=== PATIENT | female | born 1935 | race Caucasian/White ===

== ENCOUNTER 2017-08-10 23:55 | Observation (INO) ==
--- NOTE | 2017-08-11 00:05 | Emergency Department Note ---
Disposition Clinical Impression: Transient cerebral ischemia Qualifiers: Transient cerebral ischemia type: unspecified Qualified Code(s): G45.9 - Transient cerebral ischemic attack, unspecified Disposition: Admitted As Inpatient Condition: Undetermined Time of Disposition: :25 Neuro HPI - General Chief Complaint: ED Neuro Symptoms/Deficit Stated Complaint: stroke symptoms Time Seen by Provider: 08/11/17 00:01 Source: patient, EMS Mode of arrival: EMS Limitations: no limitations Nursing Notes Reviewed: Yes Vital Signs Reviewed: Yes - History of Present Illness HPI Narrative: 82-year-old female arrives to [facility] emergency department complaining of left-sided weakness left upper and lower extremities as well as decreased sensation to the left upper and lower extremity. The patient also has mild left-sided facial droop. Patient denies any other complaints at this time. The patient states that her symptoms started right at 9 PM this evening. The patient states that she called her life alert at 1045 this evening as her symptoms did not improve. EMS arrived to her home and she was noted to have a blood pressure with a systolic over 200. Reevaluation noted the blood pressure in 180s. The patient was given one nitroglycerin which brought her blood pressure down to 120 systolic. The patient is resting comfortably in the room with obvious left-sided facial droop combined with the previous couple points as above noted. The patient does not have any decrease in the symptoms. Onset of Symptoms Date: 08/11/17 Onset of Symptoms Time: 21:00 Symptom Onset Unknown: No Location: left face, left arm, left leg History of same: No Symptoms Improving: No Improves with: none Worsens with: none On Anticoagulants: No Treatments Prior to Arrival: IV, other (Nitroglycerin) - Related Data Allergies/Adverse Reactions: Allergies Allergy/AdvReac Type Severity Reaction Status Date / Time No Known Allergies Allergy Verified 08/11/17 00:04 All systems ED: reviewed and negative except as stated. Constitutional: Denies: fever, chills, weakness, weight change Cardiovascular: Denies: chest pain, palpitations, dyspnea on exertion, edema, syncope Respiratory: Denies: cough, dyspnea, wheezes, hemoptysis, stridor Gastrointestinal: Denies: abdominal pain, nausea, vomiting, diarrhea, constipation, hematemesis, melena, hematochezia Genitourinary: Denies: dysuria, frequency, hematuria, discharge Musculoskeletal: Denies: back pain, neck pain, arthralgia, myalgia Integumentary: Denies: rash, abrasion, lesions Neurological: Reports: headache, weakness, numbness, paresthesias Past Medical History - Past Medical History Attestation: Yes The following information was validated with the patient. Source: patient Medical history: Reports: hypertension Physical Exam - General Limitations: no limitations General appearance: alert, in no apparent distress - Head Head exam: atraumatic, normocephalic, normal inspection - Neck Neck exam: Present: normal inspection, full ROM, trachea midline - Chest Chest inspection: Present: normal inspection, symmetric chest wall rise - Cardiovascular Cardiovascular exam: Present: regular rate, normal rhythm, normal heart sounds - Abdominal Exam Abdominal exam: Present: soft, Non-Tender. Absent: tenderness, distention, guarding, rebound, rigidity - Extremities Exam Extremities exam: Present: normal inspection. Absent: tenderness - Neurological Exam Neurological exam: Present: alert, oriented X3 - Expanded Neurological Exam Patient oriented to: Present: person, place, time Speech: Present: fluid speech Cranial nerves: facial sensation (V): Abnormal Left, facial palsy (VII): Abnormal Left Motor strength - LUE: 4/5 Motor strength - RUE: 4/5 Motor strength - LLE: 1/5 Motor strength - RLE: 4/5 Sensory exam upper extremity: light touch: Abnormal Left Sensory exam lower extremity: light touch: Abnormal Left Coma Scale Eye Opening: Spontaneous Coma Scale Motor Response: Obeys Commands Coma Scale Verbal Response: Oriented Coma Scale Total: 15 Course - Reevaluation(s) Reevaluation #1: Radiology noted that with there were no signs of intracranial hemorrhage or acute CVA on CT of the head. Time: 00:18 Reevaluation #2: After being called back to the room, the patient's symptoms are improving. The patient has almost baseline return of her left lower extremity weakness. The patient has normal sensation of left upper and lower extremities. The patient no longer has a facial droop on the left. Time: 00:43 - Consultations Consultation #1: We spoke with Dr. Day at [facility] neurology who did not recommend TPA given the fact that the patient's symptoms are resolving. We will admit the patient to [facility] area and we will speak to neurology and administer 325 mg aspirin. Time: 00:51 Consultation #2: Spoke to Dr. Oneal about consultation. No further recommendations at this time. Time: 01:05 Vital Signs Temperature 98.7 F 08/10/17 23:56 Pulse Rate 74 08/10/17 23:56 Respiratory Rate 20 08/10/17 23:56 Blood Pressure 204/104 08/10/17 23:56 O2 Sat by Pulse Oximetry 96 08/10/17 23:56 Temperature 98.7 F 08/10/17 23:56 Pulse Rate 68 08/11/17 00:35 Respiratory Rate 18 08/11/17 00:35 Blood Pressure 183/86 08/11/17 00:35 O2 Sat by Pulse Oximetry 96 08/10/17 23:56 Oxygen Delivery Oxygen Delivery Room Air Neuro Symptoms/Deficit - MDM Narrative Medical decision making narrative: Patient left-sided deficits noted on physical exam resolved prior to [facility] neurology was consulted. The patient appears to have experienced a TIA. The patient was administered 325 mg aspirin. After speaking with Dr. Day in neurology she did not recommend TPA. We spoke with Dr. Henley in neurology here in [facility] and they will agree to consult on the patient. We will admit the patient to the hospitalist service, accepted by Dr. Trammell. - Lab Data Lab results reviewed: Yes I reviewed the patient's lab results. Result diagrams: 08/11/17 00:12 08/11/17 00:12 Lab Results 08/11/17 08/11/17 08/11/17 Range/Units 00:12 00:12 00:12 WBC 7.7 (4.3-11.1) K/mcL RBC 4.46 (3.82-4.97) M/mcL Hgb 13.2 (11.5-15.4) g/dL Hct 39.0 (35.3-44.9) % MCV 87.4 (83.0-100.0) fL MCH 29.6 (28.0-33.3) pg MCHC 33.8 (31.6-35.5) g/dL RDW 12.1 (11.5-14.5) % Plt Count 206 (140-400) K/mcL MPV 9.8 (9.4-12.4) fL Immature Gran % 0.4 (0-4) % Seg Neutrophils % 57.3 % Lymphocytes % 29.5 % Monocytes % 10.2 % Eosinophils % 2.2 % Basophils % 0.4 % Neutrophils # 4.4 (1.6-8.9) K/mcL Lymphocytes # 2.3 (0.6-4.6) K/mcL Monocytes # 0.8 (0.0-1.3) K/mcL Eosinophils # 0.2 (0.0-0.6) K/mcL Basophils # 0.0 (0.0-0.2) K/mcL PT 10.4 (9.4-12.1) Seconds INR 1.0 APTT 32.5 (26.0-36.0) Seconds Sodium 132 L (136-145) mEq/L Potassium 3.8 (3.5-4.5) mEq/L Chloride 99 (98-109) mEq/L Carbon Dioxide 23 (19-29) mEq/L BUN 22 H (7-20) mg/dL Creatinine 0.84 (0.57-1.11) mg/dL Est GFR ( Amer) > 60 (> 60) Est GFR (Non-Af Amer) > 60 (> 60) BUN/Creatinine Ratio 26 (6-26) Glucose 111 H (70-99) mg/dL Calculated Osmolality 278 L (280-300) Calcium 9.1 (8.6-10.8) mg/dL Troponin I (0-0.03) ng/mL 08/11/17 Range/Units 00:12 WBC (4.3-11.1) K/mcL RBC (3.82-4.97) M/mcL Hgb (11.5-15.4) g/dL Hct (35.3-44.9) % MCV (83.0-100.0) fL MCH (28.0-33.3) pg MCHC (31.6-35.5) g/dL RDW (11.5-14.5) % Plt Count (140-400) K/mcL MPV (9.4-12.4) fL Immature Gran % (0-4) % Seg Neutrophils % % Lymphocytes % % Monocytes % % Eosinophils % % Basophils % % Neutrophils # (1.6-8.9) K/mcL Lymphocytes # (0.6-4.6) K/mcL Monocytes # (0.0-1.3) K/mcL Eosinophils # (0.0-0.6) K/mcL Basophils # (0.0-0.2) K/mcL PT (9.4-12.1) Seconds INR APTT (26.0-36.0) Seconds Sodium (136-145) mEq/L Potassium (3.5-4.5) mEq/L Chloride (98-109) mEq/L Carbon Dioxide (19-29) mEq/L BUN (7-20) mg/dL Creatinine (0.57-1.11) mg/dL Est GFR ( Amer) (> 60) Est GFR (Non-Af Amer) (> 60) BUN/Creatinine Ratio (6-26) Glucose (70-99) mg/dL Calculated Osmolality (280-300) Calcium (8.6-10.8) mg/dL Troponin I 0.02 (0-0.03) ng/mL - Radiology Data Radiology results reviewed: Yes I reviewed the patient's radiology results. NIH Stroke Scale - Level of Consciousness LOC: Alert - LOC Questions LOC Questions: Answers both correctly - LOC Commands LOC Commands: Performs both correctly - Best Gaze Best Gaze: Normal - Visual Visual: No visual loss - Facial Palsy Facial Palsy: Normal - Motor Arms Motor Arm-Left: Drift, does NOT hit bed Motor Arm-Right: No drift for 10 seconds - Motor Legs Motor Leg-Left: Some effort against gravity, limb drifts to bed Motor Leg-Right: Drift, does NOT hit bed - Limb Ataxia Limb Ataxia: Normal, No Ataxia - Sensory Sensory: Mild to moderate loss, "not as sharp" - Best Language Best Language: No aphasia - Dysarthria Dysarthria: Mild, slurs some words - Extinction and Inattention Extinction and Inattention: Normal - NIHSS Total Score NIHSS Total Score: 6 TPA Checklist - Source Information Source: Patient - Eligibilty for IV tPA 1. LKW equal to or less than 4.5 hours be before treatment: Yes 2. Clinical diagnosis of ischemic stroke causing deficit: Yes 3. Age 18 years or older: Yes - Contraindications 4. Evidence of intracranial hemorrhage on pretreatment CT: No 5. Presentation suggests subarachnoid hem, even if CT normal: No 6. CT shows multilobar infarction: No 7. Known neoplasm, arteriovenous malformation, or aneurysm: No 8. Significant head trauma (w/ LOC) or CVA in last 3 months: No 9. BP elevated (systolic > 185 or diastolic > 110): No 10. Abnormal Blood Glucose (<50 or >400mg/dl): No 11. Active internal bleeding [PM.TPA15]: No 12. Known bleeding risk (including; not limited to 13-15): No 13. Heparin/argatroban/bivalirudin w/in 48hrs & PTT > normal: No 14. Platelet count less than 100,000/MM3: No 15. Current or recent use of anticoagualants (see protocol): No - Warnings/Precautions Considerations 16. Prior ischemic stroke within last 3 months: No 17. Recent history of intracranial hemorrhage: No 18. : No 19. Current/recent use Effient (7 days) or Brilinta (5 days): No 20. Arterial puncture at non compressible site or LP >7days: No 21. Major surgery or serious trauma in last 14 days: No 22. GI or urinary tract hemorrhage in last 21 days: No 23. OK involving left anterior myocardium in last 3 months: No 24. Suspected or known infective endocarditis/pericarditis: No - LKW: 3-4.5 hrs Add. Warnings/Precautions 21. oral anticoag other than warfarin regardles of last dose: No Critical Care Time Critical Care Time: Yes Total Critical Care Time: 35 Attestation: Critical care performed: Time is exclusive of separately billable procedures. Time includes: direct patient care, patient reassessment, coordination of patient care, interpretation of data (laboratory data, radiology data, and respiratory data), review of patient's medical records, medical consultation and documentation of patient care. Procedures included in critical care time: Procedures excluded from critical care time: Attestation Statement - Attestation Attestation: IVijay MD, personally evaluated this patient and discussed their management with the resident physician. I reviewed the resident's note and agree with the documented findings, medical decision making, and plan of care. 82-year-old female presents to the emergency department with a complaint of sided weakness and numbness and left facial droop that started about 9 PM tonight. No prior history of stroke. No blurred vision or double vision. No difficulty with speech or swallowing. She does admit to some mild headache. No cough or fever. No chest pain or increased shortness of breath. On examination patient is a well-developed well-nourished elderly female in no acute distress. She is alert and oriented 3. There is no cyanosis or diaphoresis. At time of my examination and her symptoms have essentially resolved. No facial droop noted. Good sensation. Neck is supple and nontender. No meningismus. Breath sounds are equal bilaterally. Heart regular. Abdomen soft and nontender with normal bowel sounds. Good movement of all 4 extremities. Labs reviewed and unremarkable. No acute abnormality on head CT. A stroke alert was called and after consultation with [facility] stroke neurologist due to resolution of patient's symptoms it was decided that patient was not a TPA candidate. The hospitalist, Dr. Trammell, was consulted and accepted admission of the patient.
[2017-08-11 00:19] LABS: Basophils % 0.4 %; Eosinophils # 0.2 K/mcL (0.0-0.6); Eosinophils % 2.2 %; Hemoglobin 13.2 g/dL (11.5-15.4); Immature Granulocytes % 0.4 % (0-4); Lymphocytes # 2.3 K/mcL (0.6-4.6); Lymphocytes % 29.5 %; Mean Corpuscular HGB Conc 33.8 g/dL (31.6-35.5); Mean Corpuscular Hemoglobin 29.6 pg (28.0-33.3); Mean Corpuscular Volume 87.4 fL (83.0-100.0); Mean Platelet Volume 9.8 fL (9.4-12.4); Monocytes # 0.8 K/mcL (0.0-1.3); Monocytes % 10.2 %; Neutrophils # 4.4 K/mcL (1.6-8.9); Platelet Count 206 K/mcL (140-400); Red Blood Count 4.46 M/mcL (3.82-4.97); Red Cell Distribution Width 12.1 % (11.5-14.5); Segmented Neutrophils % 57.3 %
[2017-08-11 00:24] LABS: Prothrombin Time 10.4 Seconds (9.4-12.1)
[2017-08-11 00:27] LABS: Activated Partial Thrombo Time 32.5 Seconds (26.0-36.0)
[2017-08-11 00:31] LABS: BUN/Creatinine Ratio 26 (6-26); Blood Urea Nitrogen 22 mg/dL (7-20); Calcium 9.1 mg/dL (8.6-10.8); Carbon Dioxide 23 mEq/L (19-29); Chloride 99 mEq/L (98-109); Glucose 111 mg/dL (70-99); Osmolality,Calculated 278 (280-300); Potassium 3.8 mEq/L (3.5-4.5); Sodium 132 mEq/L (136-145); eGFR For African Americans > 60 (> 60); eGFR For Non-African Americans > 60 (> 60)
[2017-08-11] MEDS ORDERED: *HR* Labetalol 100 MG/20 ML MDV IVP ONE (00:48)
[2017-08-11] MEDS ORDERED: Aspirin 325 MG TABLET PO ONE (00:57)
[2017-08-11] MEDS ORDERED: Ondansetron ODT 4 MG TAB.RAPDIS SL PRN (03:54)
[2017-08-11] MEDS ORDERED: Naloxone 0.4 MG/ML INJ IVP PRN (03:54)
[2017-08-11] MEDS ORDERED: Acetaminophen 325 MG TABLET PO PRN (03:54)
[2017-08-11 04:54] LABS: Chol/HDL Ratio 2.1 (0-4.9)
[2017-08-11] MEDS: Famotidine 20 MG/2 ML VIAL IVP SCH ×2 (05:38→17:42)
--- NOTE | 2017-08-11 06:38 | Internal Med History&Physical ---
Date of Encounter: 08/11/17 Time of Encounter: 04:45 Assessment and Plan (1) Transient cerebral ischemia Current visit: Yes Status: Acute Transient ischemic attack, unspecified Left upper and lower extremity weakness and left facial droop - now resolved Continue Aspirin, Lipitor CT head - no acute intracranial abnormality EKG - pending Troponin - negative Echocardiogram - pending MRI brain - pending Carotid Doppler - pending Neurology consult - pending Cardiac telemetry, labs in a.m., monitor closely Qualifiers: Transient cerebral ischemia type: unspecified Qualified Code(s): G45.9 - Transient cerebral ischemic attack, unspecified (2) Hypertension Current visit: Yes Status: Chronic Essential intention, uncontrolled, monitor IV labetalol as needed Qualifiers: Hypertension type: essential hypertension Qualified Code(s): I10 - Essential (primary) hypertension (3) DVT prophylaxis Current visit: Yes Status: Acute Continue heparin subcutaneous Internal Medicine - H&P: HPI Chief complaint: Left sided numbness Admitted From: Emergency Dept Plans for Post Hospital Care: Home History of present illness: Ms. Larson is a 82 year old female with past medical history of hypertension. Patient presented to ED with complaints of left-sided numbness. Examined in the room. Patient is awake and alert. Not in any distress. Able to provide all history. No family members at bedside. Patient states she developed left upper and lower extremity numbness and tingling around 9 PM this evening. She also developed left-sided facial droop. She was brought to the ED by EMS. She was initially found to have systolic blood pressure greater than 200 and was given a nitroglycerin. Initial CT scan of the head did not show any acute bleed or acute CVA. Her symptoms started to improve while she was in the ED. [facility] neurology was alerted, and TPA was not recommended as patient's symptoms had improved and patient was also out of the TPA window. Patient was given aspirin in the ED. Patient denies chest pain or shortness of breath. She denies headache or dizziness or abdominal pain or vomiting. Denies fever or cough. No other aggravating or alleviating factors. No other associated symptoms. Patient states she feels better at this time and has no other complaints. She is being admitted for acute CVA/TIA. She will need a stroke workup. CODE STATUS full code. Past Med Surg Social Fam HX - Past Medical History Medical history: hypertension Psychiatric history: no psych history - Social History Smoking Status: Never smoker Alcohol use: none Drug use: none - Family History Mother Living Status: Age at : 80 Hx Family Cardiac Disorders: Yes ([place]) Hx Family Respiratory Disorders: No Hx Family Cancer: No Hx Family GI Disorders: No Hx Family Genitourinary Disorders: No Hx Family Endocrine Disorder: Yes (DM) Hx Family Musculoskeletal Disorders: No Hx Family Neuromuscular Disorders: No Hx Family Neurologic Disorders: No Hx Family HEENT Disorders: No Hx Family Autoimmune Disorders: No Hx Family Reproductive Disorders: No Hx Family Psychosocial Disorders: No Hx Family Medical Disorders: No Internal Medicine - H&P: Meds 3 Allergy/AdvReac Type Severity Reaction Status Date / Time No Known Allergies Allergy Verified 08/11/17 00:04 All Systems PM: A 10-system review of systems was performed and is negative for pertinent findings except as documented above in the HPI. - Constitutional Constitutional: fatigue, no fever(s), no weakness - EENT Eyes: no blurry vision - Cardiovascular Cardiovascular ROS IM: no chest pain, no claudication, no diaphoresis, no dyspnea, no dyspnea on exertion, no edema, no lightheadedness, no orthopnea, no palpitations, no syncope - Respiratory Respiratory: no cough, no dyspnea, no hemoptysis, no dyspnea on exertion, no wheezing, no chest congestion - Gastrointestinal Gastrointestinal: no abdominal pain, no bloating, no cramping, no diarrhea, no heartburn, no hematemesis, no nausea, no vomiting - Genitourinary Genitourinary: no dysuria - Neurological Neurological ROS: focal weakness, numbness, tingling, weakness, no abnormal gait , no abnormal speech, no confusion, no convulsions - Constitutional Vitals: Temp Pulse Resp BP Pulse Ox 97.8 F 63 18 175/70 98 08/11/17 03:08 08/11/17 03:08 08/11/17 03:08 08/11/17 03:08 08/11/17 03:08 General appearance: Present: cooperative, A&O X 3, pleasant, no acute distress, answers questions appropriately - Head Head exam: Present: atraumatic - Eye Eye exam: Present: EOMI - ENT ENT exam: Present: mucous membranes moist - Respiratory Respiratory exam: Present: CTAB. Absent: chest wall tenderness, rales, rhonchi , wheezes, tachypnea - Cardiovascular Cardiovascular exam: Present: RRR, +S1, +S2 - GI/Abdominal GI/Abdominal exam: Present: soft. Absent: distended, firm, guarding, tenderness - Extremities Exam Extremities exam: Present: radial pulses palpable and symmetrical. Absent: calf tenderness, cyanotic, pedal edema - Neurological Exam Neurological exam: Present: alert, oriented X3, no focal deficits, facial droop (mild left facial droop). Absent: pronater drift, speech deficit Internal Med - H&P Results - Labs CBC & Chem 7: 08/11/17 00:12 08/11/17 00:12 Labs: Cardiac Enzymes 08/11/17 Range/Units 04:12 Troponin I 0.01 (0-0.03) ng/mL
[2017-08-11] MEDS: Aspirin 81 MG TAB.CHEW PO SCH (08:04)
[2017-08-11] MEDS: *HR* Heparin 5,000 UNIT/ML VIAL SQ SCH ×2 (08:04→15:21)
--- NOTE | 2017-08-11 09:25 | Neurology - Consult Note ---
Date of Encounter: 08/11/17 Time of Encounter: 09:21 Assessment and Plan (1) Transient cerebral ischemia Current Visit: Yes Status: Acute TIA vs stroke vs hypertensive urgency causing transient neurological symptoms, with rapid improvement as BP improves. Agree with stroke/TIA work up, including MRI of brain, carotid artery duplex, echo and continue Aspirin 81mg daily. manage BP. Qualifiers: Transient cerebral ischemia type: unspecified Qualified Code(s): G45.9 - Transient cerebral ischemic attack, unspecified History of Present Illness Chief complaint: headache and left sided numbness HPI: Ms. Larson is a 82 year old female with PMH significant for HTN who developed acute onset of left sided numbness and severe headaches. Symptoms occurred last night about 10 pm. She describes severe headache involving the entire head. No nausea and vomiting. No visual difficulty. she felt numbness to her left face and arm and leg as well. She was brought to ER. BP was elevated at 200 systolic. By the time she arrived ER, her symptoms improved. Discussed with [facility] stroke team and she was considered not a candidate for tPA thrombolysis. Initial CT was read as normal. Now she reports that she has been feeling a lot better, back to her normal baseline. Past Med Surg Social Fam HX - Past Medical History Medical history: hypertension Psychiatric history: no psych history - Social History Smoking Status: Never smoker Alcohol use: none Drug use: none - Family History Mother Living Status: Age at : 80 Hx Family Cardiac Disorders: Yes ([place]) Hx Family Respiratory Disorders: No Hx Family Cancer: No Hx Family GI Disorders: No Hx Family Genitourinary Disorders: No Hx Family Endocrine Disorder: Yes (DM) Hx Family Musculoskeletal Disorders: No Hx Family Neuromuscular Disorders: No Hx Family Neurologic Disorders: No Hx Family HEENT Disorders: No Hx Family Autoimmune Disorders: No Hx Family Reproductive Disorders: No Hx Family Psychosocial Disorders: No Hx Family Medical Disorders: No Medications and Allergies 3 Allergy/AdvReac Type Severity Reaction Status Date / Time No Known Allergies Allergy Verified 08/11/17 00:04 All Systems: A 10-system review of systems was performed and is negative for pertinent findings except as documented above in the HPI. Physical Examination - Vital Signs Vital Signs: Initial Vital Signs Temp Pulse Resp BP Pulse Ox 98.7 F 74 20 204/104 96 08/10/17 23:56 08/10/17 23:56 08/10/17 23:56 08/10/17 23:56 08/10/17 23:56 - Constitutional General appearance: comfortable - Neurologic Sensorimotor examination: intact Detailed motor examination: grossly full strength in all extremities Motor examination - right side: 55: deltoids, biceps, triceps, wrist flexion, wrist extension, plug stitcher, hip flexors, tibialis Anterior, quadriceps, toe extension (EHL), plantarflexion Motor examination - left side: 5/5: deltoids, biceps, triceps, wrist flexion, wrist extension, hip flexors, plug stitcher, quadriceps, tibialis Anterior, toe extension (EHL), plantarflexion Reflexes: Biceps: 2+, Triceps: 2+, Brachioradialis: 2+, Patella: 2+, Achilles: 2 + Mental Status Examination: awake, alert, oriented to person, oriented to place, oriented to time, follows commands appropriately, answers questions appropriately, no agnosia, no aphasia, no aproxia Cranial nerve examination: PERRL, EOMI, visual morillo intact, corneal reflexes brisk symmetrically, sensory to face intact, mastication intact, no facial asymmetry is present, no dysarthria, hearing is intact symmetrically, soft palate elevates bilaterally upon phonation, gag reflex intact, flexes SCM and trapezius muscles symmetrically with full power, tongue protrudes midline, no atrophy or facial fasiculations present Cerebellar examination: no dysmetria, performs finger to nose and heel to key symmetrically without ataxia, no gait ataxia, no truncal ataxia, no difficulty with rapid alternating movements Results - Laboratory Findings CBC and BMP: 08/11/17 00:12 08/11/17 00:12 Abnormal lab findings: Abnormal lab results Sodium 132 mEq/L (136-145) L 08/11/17 00:12 BUN 22 mg/dL (7-20) H 08/11/17 00:12 Glucose 111 mg/dL (70-99) H 08/11/17 00:12 Calculated Osmolality 278 (280-300) L 08/11/17 00:12 Consult Discharge Plan - Plan Referrals: Kathryn Strickland, RN HEART [Primary Care Provider] -
--- NOTE | 2017-08-11 12:33 | Event Note ---
<Mirza Leiva - Last Filed: 08/11/17 12:34> Date of Encounter: 08/11/17 Time of Encounter: 12:28 Patient presented with symptoms of left unilateral numbness that started 10 PM last night. Her son in law saw that she had facial drooping. She was sleeping in bed during this event. On presentation her BP was 204/104. Patient was admitted for suspected TIA. Patients BP has decreased to 172/78 and her symptoms have resolved. CThead negative. Echo, carotid doppler and MRI head pending. Continue aspirin statin. <Sukumar Andrew - Last Filed: 08/11/17 16:00> Date of Encounter: 08/11/17 82 y/o female presented with acute neurologic symptoms. BP markedly elevated. Remains elevated but better overall. MRI negative for stroke. Carotid duplex not significant. Echo pending. Currently on ASA and statin. Will await echo results and control BP better here in hospital now that no stroke noted on MRI. Agree with plan as ordered.
[2017-08-11] MEDS: amLODIPine 5 MG TABLET PO SCH (15:21)
[2017-08-11 16:29] LABS: Bilirubin,Urine Negative (Negative); Blood,Urine Negative (Negative); Clarity,Urine Clear (Clear); Color,Urine Yellow (Yellow); Glucose,Urine (UA) Normal (Normal); Ketones,Urine Negative (Negative); Leukocyte Esterase,Urine Small (Negative); Nitrite,Urine Negative (Negative); PH,Urine 6.5 pH Units (5.0-8.0); Protein,Urine Negative (Neg-Trace); Urobilinogen,Urine Normal (Normal)
[2017-08-11 16:32] LABS: Bacteria,Urine None Seen per hpf (None-Few); Hyaline Casts,Urine None Seen per lpf (None-Few); RBC,Urine 0-3 per hpf (0-3); Squamous Epithelial Cell,Urine Many per lpf (None-Few)
--- NOTE | 2017-08-11 19:29 | Electrocardiograph Report ---
[place] [id number] Test Date: 2017-08-11 Pat Name: Camille Larson Department: 103 Room: 2NE19 Gender: F [employer] In[employer]: : 1935 Requested By: Vijay Montejo Order Number: [id number] Reading MD: Benito Ayala MD Measurements Intervals [place] Rate: 64 P: 24 FL: 199 QRS: -8 QRSD: 86 T: 54 QT: 342 QTc: 351 Interpretive Statements SINUS RHYTHM Electronically Signed On 08-11-2017 19:27:31 EDT by Benito Ayala MD
--- NOTE | 2017-08-11 19:33 | Electrocardiograph Report ---
[place] [id number] Test Date: 2017-08-11 Pat Name: Camille Larson Department: 111 Room: 2NE19 Gender: F Deputy Sheriff: MALI : 1935 Requested By: Krzysztof Whittington Order Number: [id number] Reading MD: Benito Ayala MD Measurements Intervals [place] Rate: 56 P: 35 MT: 204 QRS: -9 QRSD: 86 T: 51 QT: 433 QTc: 426 Interpretive Statements SINUS BRADYCARDIA LOW QRS VOLTAGE IN PRECORDIAL LEADS Electronically Signed On 08-11-2017 19:31:42 EDT by Benito Ayala MD
[2017-08-11] MEDS: *HR* Labetalol 20 MG/4 ML SYRINGE IVP PRN (21:19)
[2017-08-12] MEDS: *HR* Heparin 5,000 UNIT/ML VIAL SQ SCH ×2 (00:39→09:32)
[2017-08-12 04:12] VITALS: BP 161/79
[2017-08-12] MEDS: Famotidine 20 MG/2 ML VIAL IVP SCH (05:23)
[2017-08-12] MEDS: *HR* Labetalol 20 MG/4 ML SYRINGE IVP PRN (05:36)
--- NOTE | 2017-08-12 06:37 | Discharge Summary ---
<Mirza Leiva - Last Filed: 08/12/17 15:07> Date of Encounter: 08/12/17 Time of Encounter: 08:29 - Discharge Diagnosis (1) Transient cerebral ischemia Priority: Primary Status: Suspected Qualifiers: Transient cerebral ischemia type: unspecified Qualified Code(s): G45.9 - Transient cerebral ischemic attack, unspecified (2) DVT prophylaxis Priority: Secondary Status: Acute (3) Hypertension Priority: Secondary Status: Chronic Qualifiers: Hypertension type: essential hypertension Qualified Code(s): I10 - Essential (primary) hypertension - Discharge Medications Prescriptions: Aspirin 81 mg PO DAILY #30 tab.chew Atorvastatin [Lipitor] 40 mg PO HS #30 tablet Home Medications: Atorvastatin [Lipitor] 40 mg PO 1700 08/11/17 [History] amLODIPine [Norvasc] 5 mg PO DAILY 08/11/17 [History] Aspirin 81 mg PO DAILY #30 tab.chew 08/12/17 [Rx] Atorvastatin [Lipitor] 40 mg PO HS #30 tablet 08/12/17 [Rx] Cetirizine HCl [All Day Allergy] 10 mg PO DAILY 08/12/17 [History] Escitalopram [Lexapro] 10 mg PO DAILY 08/12/17 [History] Gluc/Shakir-MSM#1/C/Roberto/Polo/Bor [Osteo Bi-Flex Caplet] 1 tab PO DAILY 08/12/17 [ History] Krill/[place]-3/Dha/Epa/Lipids [Hm Megakrill 500 mg Softgel] 1 tab PO DAILY [History] Lisinopril-HCTZ 20-12.5 [Prinzide 20-12.5] 1 tab PO DAILY 08/12/17 [History] Multivitamin [Multi-Day Vitamins] 1 tab PO DAILY 08/12/17 [History] Zolpidem [Ambien] 5 mg PO HS 08/12/17 [History] Allergies/Adverse Reactions: 3 Allergy/AdvReac Type Severity Reaction Status Date / Time No Known Allergies Allergy Verified 08/12/17 08:43 Procedures/tests Complete & Pending: Procedures Performed prior 72 hours Category Date Time Status MR head/brain wo con [MR] Stat MRI 08/11/17 13:13 Completed EV carotid duplex imaging BI Routine Y 08/11/17 03:58 Completed EV echocardiogram Routine Y 08/11/17 03:58 Completed Date of admission: 08/11/17 03:54 Primary care physician: Kathryn Strickland CNP Consults: 08/11/17 04:04 Consult to Occupational Therapy [CONS] Routine Comment: Evaluate, develop and implement POC Reason for Consult: TIA/CVA Consult to Physical Therapy [CONS] Routine Comment: Evaluate, develop and implement POC Reason for Consult: TIA/CVA Discharging clinician: Mirza Leiva Anticipated date of discharge: 08/12/17 - Patient Status Disposition: Home, Self-Care Condition: Good Functional capacity at discharge: independent ambulation Overall status at discharge: patient is progressing back to baseline - Discharge Instructions Instructions: Aspirin (By mouth), Atorvastatin (By mouth), Transient Ischemic Attack (DC), Chronic Hypertension (DC) Follow Up With: Kathryn Strickland CNP [Primary Care Provider] - 08/20/17 10:10 am Additional Instructions: Please start taking aspirin and atorvastatin as prescribed. Please return to ER if she have episodes of facial drooping, one-sided weakness , one-sided numbness, slurred speech. Please follow-up with your primary care physician Please restart her home blood pressure medications. Please contact primary physician or emergency room if your BP does not remain under control. - Diet and Activity Activity: increase activity as tolerated Diet: advance to your usual diet Hospital course: Ms. Larson is a 82 year old female presented with chief complaint of left ear numbness and started 10 PM on the night of admission. Patient states she was sleeping in bed at that time. Patient called her son-in-law who said she might of had a left facial drooping. When presenting to the emergency room patient had blood pressure 204/104. Patient was admitted for suspected TIA. Neurology was consulted. Patient's symptoms improved with a decrease of blood pressure to 172/78. CT head was negative. Carotid Doppler showed right carotid system was normal, left distal ICA had a moderate 40-59% stenosis. Echocardiogram showed LVEF of 55% with no wall motion abnormalities or valvular dysfunction, no pfo identified. MRI was negative for stroke. Patient was started on aspirin and statin. Negative stroke on MRI she was restarted on her home hypertension medications of amlodipine and lisinopril hydrochlorothiazide. Neurology states this may be TIA vs hypertensive urgency. Her blood pressure improved. She is tolerating her diet. She is able to ambulate independently. She is ready for discharge. Plan: Follow up PCP. Start medications of aspirin and atorvastatin. - Time Spent with Patient Total time spent providing and/or coordinating discharge services: - Constitutional Vitals: Temp Pulse Resp BP Pulse Ox 98.7 F 61 18 161/79 98 08/12/17 03:55 08/12/17 03:55 08/12/17 03:55 08/12/17 03:55 08/12/17 03:55 General appearance: Present: cooperative, A&O X 3, pleasant, no acute distress, answers questions appropriately - Head Head exam: Present: atraumatic, normocephalic - Eye Eye exam: Present: PERRL, conjuntiva pink, sclera anicteric - Neck Neck exam general surgery: Present: supple, trachea midline. Absent: lymphadenopathy - Respiratory Respiratory exam: Present: CTAB. Absent: accessory muscle use, rales, rhonchi, wheezes - Cardiovascular Cardiovascular exam: Present: RRR, +S1, +S2. Absent: diastolic murmur, gallop, rubs, systolic murmur - GI/Abdominal GI/Abdominal exam: Present: normal bowel sounds, soft, no peritoneal signs. Absent: distended, tenderness - Extremities Exam Extremities exam: Present: warm, radial pulses palpable and symmetrical. Absent : calf tenderness, cyanotic, pedal edema - Neurological Exam Neurological exam: Present: CN II-XII intact, oriented X3, no focal deficits. Absent: pronater drift, facial droop, speech deficit - Skin Skin exam: Present: dry, intact <Sukumar Andrew - Last Filed: 08/12/17 15:24> Date of Encounter: 08/12/17 - Discharge Diagnosis (1) Transient cerebral ischemia Status: Suspected Qualifiers: Transient cerebral ischemia type: carotid artery syndrome (hemispheric) Qualified Code(s): G45.1 - Carotid artery syndrome (hemispheric) (2) Hypertension Status: Chronic Qualifiers: Hypertension type: essential hypertension Qualified Code(s): I10 - Essential (primary) hypertension Procedures/tests Complete & Pending: Procedures Performed prior 72 hours Category Date Time Status MR head/brain wo con [MR] Stat MRI 08/11/17 13:13 Completed EV carotid duplex imaging BI Routine Y 08/11/17 03:58 Completed EV echocardiogram Routine Y 08/11/17 03:58 Completed Date of admission: 08/11/17 03:54 Primary care physician: Kathryn Strickland CNP Consults: 08/11/17 04:04 Consult to Occupational Therapy [CONS] Routine Comment: Evaluate, develop and implement POC Reason for Consult: TIA/CVA Consult to Physical Therapy [CONS] Routine Comment: Evaluate, develop and implement POC Reason for Consult: TIA/CVA Hospital course: Ms. Larson is a 82 year old female - Time Spent with Patient Total time spent providing and/or coordinating discharge services: - Constitutional Vitals: Temp Pulse Resp BP Pulse Ox 98.7 F 61 18 161/79 98 08/12/17 03:55 08/12/17 03:55 08/12/17 03:55 08/12/17 03:55 08/12/17 03:55 - Attending Attestation I examined this patient and my medical decision-making was reviewed with the Resident Physician on 08/12/17. I agree with the documented findings, disposition and treatment plan as described except to the extent set forth below. Ms. Larson has been admitted for possible CVA. Her symptoms have improved. She is afebrile. Her BP remains somewhat elevated before daily meds given. She is ready for discharge home. Exam Alert. Comfortable. Mucus membranes moist Heart reg No wheeze Abd soft No edema Plan D/C home today No Mobic - may have elevated BP Discuss alternative med for arthritis with PCP She refused flu vaccine.
[2017-08-12] MEDS ORDERED: Lisinopril-HCTZ 20-12.5mg TABLET PO SCH (09:00)
[2017-08-12] MEDS: amLODIPine 5 MG TABLET PO SCH (09:32)
[2017-08-12] MEDS: Aspirin 81 MG TAB.CHEW PO SCH (09:32)
--- NOTE | 2017-08-12 12:52 | Carotid Imaging Report ---
Carotid Duplex Patient Name:Camille Larson Order Number:[id number] Procedure Date:08/11/2017 Date:1935ge:82 yrs Gender:Female Lt BP:172 / 78 mmHg Rt.BP:172 / 78 mmHgHeart Rate: Location:[facility] Room #: 2NE19 Reo Asset Manager:Jose Oneal Referring MD:Krzysztof Whittington MD wood milling machine operator:None Reading MD:Kyler Butler MD , FACS Primary Indications:TIA / CVA Risk Factors Yes/No Hypertension Yes Hx of TIA Yes Hx of CVA Yes Impressions: Findings: Right carotid system is essentially normal. Findings: Left distal ICA has a moderate, 40-59% stenosis. Findings Carotid Duplex: Left: There is nonstenotic plaque in the left bifurcation. There is smooth homogeneous plaque. There is 40-59% stenosis in the left distal internal carotid artery. There is smooth homogeneous plaque. Prior Study: No prior study available for comparison. Carotid Results Right PSV EDV Assessment Proximal CCA 78 12 Normal Mid CCA 83 15 Normal Distal CCA 76 13 Normal Bifurcation 79 12 Normal Proximal ICA 69 14 Normal Mid ICA 76 15 Normal Distal ICA 106 26 Normal ECA 114 9 Normal Vertebral Artery 31 6 Antegrade Flow Left PSV EDV Assessment Proximal CCA 82 18 Normal Mid CCA 73 12 Normal Distal CCA 67 13 Normal Bifurcation 66 13 Non Stenotic Plaque Proximal ICA 62 13 Normal Mid ICA 81 18 Normal Distal ICA 198 35 40-59% stenosis ECA 134 15 Normal Vertebral Artery 37 7 Antegrade Flow Ratio's Right ICA/CCA Ratio: 1.28 ICA/CCA Values: 106/83 Left ICA/CCA Ratio: 2.71 ICA/CCA Values: 198/73 Updated by Kyler Butler MD, FACS on 08/12/2017 12:45:10 PM Kyler Butler MD electronically signed on 08/12/2017 12:45:38 PM with status of Final
== END 2017-08-12 11:31 | disposition home or self-care (01) ==
LOC: 2NENU 23:55 → EMEROO 23:55 → 2NENU 08-11 03:07
PROVIDERS: ADMIT Hospitalist; ATTEND Internal Medicine

== ENCOUNTER 2020-08-19 12:51 | Observation (INO) ==
[2020-08-19 13:54] LABS: Hematocrit 41.1 % (35.3-44.9); Hemoglobin 13.8 g/dL (11.5-15.4); Mean Corpuscular HGB Conc 33.6 g/dL (31.6-35.5); Mean Corpuscular Hemoglobin 31.2 pg (28.0-33.3); Mean Platelet Volume 10.7 fL (9.4-12.4); Platelet Count 172 K/mcL (140-400); Red Blood Count 4.42 M/mcL (3.82-4.97); Red Cell Distribution Width 12.3 % (11.5-14.5); White Blood Count 7.6 K/mcL (4.3-11.1)
[2020-08-19 14:06] LABS: Prothrombin Time 12.1 Seconds (9.4-12.1)
[2020-08-19 14:09] LABS: Activated Partial Thrombo Time 30.2 Seconds (26.0-36.0)
[2020-08-19 14:20] LABS: BUN/Creatinine Ratio 22 (6-26); Blood Urea Nitrogen 21 mg/dL (8-23); Calcium 9.1 mg/dL (8.6-10.3); Carbon Dioxide 25 mEq/L (23-29); Chloride 98 mEq/L (98-107); Glucose 116 mg/dL (70-105); Osmolality,Calculated 282 (280-300); Potassium 3.7 mEq/L (3.5-5.1); Sodium 134 mEq/L (136-145); Troponin I < 0.03 ng/mL (< 0.04); eGFR For African Americans > 60 (> 60); eGFR For Non-African Americans 57 (> 60)
[2020-08-19] MEDS ORDERED: Isovue-370 500 ML BOTTLE IVP ONE (14:43)
[2020-08-19] MEDS ORDERED: Aspirin 81 MG TAB.CHEW PO STA (14:43)
[2020-08-19 16:23] LABS: Bacteria,Urine Few per hpf (None-Few); Bilirubin,Urine Negative (Negative); Blood,Urine Negative (Negative); Clarity,Urine Turbid (Clear); Color,Urine Light-Yellow (Yellow); Glucose,Urine (UA) Normal (Normal); Hyaline Casts,Urine Few per lpf (None Seen); Ketones,Urine Negative (Negative); Leukocyte Esterase,Urine Large (Negative); Mucus,Urine Few per lpf (None-Few); Nitrite,Urine Positive (Negative); PH,Urine 5.5 pH Units (5.0-8.0); Protein,Urine Negative (Neg-Trace); Squamous Epithelial Cell,Urine Few per hpf (None-Few); Urobilinogen,Urine Normal (Normal); WBC,Urine TNTC per hpf (0-3)
[2020-08-19] MEDS ORDERED: cefTRIAXone 1,000 MG in Water for inj. (sterile) 10 ML IVP ONE (16:27)
[2020-08-19] MEDS ORDERED: *HR* Promethazine 25 MG/ML VIAL IVP PRN (16:28)
[2020-08-19] MEDS ORDERED: Perflutren Lipid Microsphere 1.3 ML in 0.9 % Sodium Chloride 8.7 ML IVP PRN (16:30)
[2020-08-20 02:26] LABS: Hematocrit 38.8 % (35.3-44.9); Mean Corpuscular HGB Conc 33.5 g/dL (31.6-35.5); Mean Corpuscular Hemoglobin 31.2 pg (28.0-33.3); Mean Platelet Volume 11.3 fL (9.4-12.4); Platelet Count 180 K/mcL (140-400); Red Blood Count 4.17 M/mcL (3.82-4.97); Red Cell Distribution Width 12.3 % (11.5-14.5); White Blood Count 7.5 K/mcL (4.3-11.1)
[2020-08-20 02:48] LABS: Alanine Aminotransferase 12 Units/L (7-52); Albumin 3.6 g/dL (3.5-5.7); Albumin/Globulin Ratio 1.5 (1.1-2.2); Alkaline Phosphatase 82 Units/L (34-104); Aspartate Amino Transferase 17 Units/L (13-39); BUN/Creatinine Ratio 28 (6-26); Bilirubin,Total 0.6 mg/dL (0.3-1.0); Blood Urea Nitrogen 21 mg/dL (8-23); Carbon Dioxide 26 mEq/L (23-29); Chloride 100 mEq/L (98-107); Chol/HDL Ratio 2.2 (0-4.9); Cholesterol 109 mg/dL (< 200); Globulin 2.4 g/dL (2.4-3.5); Glucose 94 mg/dL (70-105); HDL Cholesterol 50 mg/dL (40-59); LDL Cholesterol,Calculated 36 mg/dL (< 100); Osmolality,Calculated 285 (280-300); Potassium 3.6 mEq/L (3.5-5.1); Sodium 136 mEq/L (136-145); Triglycerides 113 mg/dL (< 150); eGFR For African Americans > 60 (> 60); eGFR For Non-African Americans > 60 (> 60)
[2020-08-20] MEDS ORDERED: *HR* Enoxaparin 40 MG/0.4 ML SYRINGE SQ SCH (06:00)
[2020-08-20 07:01] VITALS: BP 152/73
[2020-08-20 08:12] LABS: Estimated Average Glucose 123 mg/dl
[2020-08-20] MEDS ORDERED: cefTRIAXone 1,000 MG in Water for inj. (sterile) 10 ML IVP SCH (09:00)
[2020-08-20] MEDS ORDERED: Aspirin 81 MG TAB.CHEW PO SCH (09:00)
== END 2020-08-20 11:33 | disposition home health service (06) ==
LOC: EMEROOARM 12:51 → 3BNU 12:51 → SUATTDRO 16:40 → 3BNU 17:28
PROVIDERS: ADMIT Internal Medicine; ATTEND Family Medicine